=== PATIENT | male | born 1980 | race Asian ===

== ENCOUNTER 2023-12-13 15:44 | Outpatient (CLI) | payer BC, SELFPAY ==
--- NOTE | ~2023-12-13 | XR_ITS ---
EXAMINATION: XR chest 2V DATE: 12/13/2023 16:23 INDICATION: Other chest pain and back pain. TECHNIQUE: Frontal and lateral views of the chest were obtained. COMPARISON: None. FINDINGS: There is no pneumonia, pleural effusion, or pneumothorax. The heart size is normal. IMPRESSION: 1. No acute cardiopulmonary disease. Reviewed, dictated and finalized at location A.
--- NOTE | ~2023-12-13 | XR_ITS ---
EXAMINATION: XR thoracic spine 3V DATE: 12/13/2023 16:23 INDICATION: Dorsalgia, unspecified. TECHNIQUE: 3 views of the thoracic spine were obtained. COMPARISON: None. FINDINGS: Alignment is normal. Vertebral body heights are normal. There is mildly decreased disc heig ht at multiple levels in upper thoracic spine with endplate osteophytes. IMPRESSION: 1. Mild thoracic spondylosis. Reviewed, dictated and finalized at location A.
== END 2023-12-13 15:45 | disposition home or self-care (01) ==
LOC: ANHIMG 15:47
PROVIDERS: PCP Family Medicine; Visit Provider Family Medicine
DX: R07.89 Other chest pain (principal); M47.894 Other spondylosis, thoracic region
CPT/HCPCS: 71046; 72072

== ENCOUNTER 2024-05-13 15:19 | Outpatient (CLI) | payer BC, SELFPAY ==
--- NOTE | ~2024-05-13 | XR_ITS ---
HISTORY: M54.50 - Low back pain, unspecified COMPARISON: None. TECHNIQUE: 2 view lumbar spine. FINDINGS: Lumbar vertebral bodies are normally aligned. There are 5 non-rib bearing lumbar vertebral bodies. Disc spaces and vertebral body heights are well maintained. There are no lytic or sclerotic lesions. Paraspinal soft tissues are unremarkable. Facet arthropathy is present. IMPRESSION: Trace degenerative disease without acute fracture, as detailed above. Reviewed, dictated and finalized at location A. GER PROTEIN
== END 2024-05-13 15:20 | disposition home or self-care (01) ==
PROVIDERS: PCP Family Medicine; Visit Provider Student in an Organized Health Care Education/Training Program
DX: M54.50 Low back pain, unspecified (principal)
CPT/HCPCS: 72100